=== PATIENT | male | born 2000 | race Two or more races ===

== ENCOUNTER 2019-08-06 11:26 | Emergency (ER) | payer MEDICAID, OTHER ==
[~2019-08-06] VITALS: Ht 180.3 cm; Wt 72.7 kg
[2019-08-06] MEDS ORDERED: RISP4TAB73 PO (11:39)
[2019-08-06] MEDS ORDERED: GUAN1TAB22 PO (11:39)
[2019-08-06] MEDS ORDERED: ATOM25CA8 PO (11:39)
[2019-08-06] MEDS ORDERED: HYD25 PO (11:39)
[2019-08-06 12:31] LABS: BASOPHILS % (AUTO) 0.2 % (0.0-2.0); EOSINOPHILS % (AUTO) 0.2 % (1.0-6.0); HEMATOCRIT 42.4 % (41-53); HEMOGLOBIN 14.4 g/dL (13.5-17.5); LYMPHOCYTES # (AUTO) 2.3 K/uL (1.0-4.8); LYMPHOCYTES % (AUTO) 24.8 % (22.0-44.0); MEAN CORPUSCULAR HEMOGLOBIN 29.8 pg (26.0-34.0); MEAN CORPUSCULAR HGB CONC 33.9 G/dL (31.0-37.0); MEAN CORPUSCULAR VOLUME 88 fL (80-100); MONOCYTES # (AUTO) 0.6 K/uL (0.1-1.0); MONOCYTES % (AUTO) 6.6 % (2.0-9.0); NEUTROPHILS # (AUTO) 6.4 K/uL (1.8-7.7); NEUTROPHILS % (AUTO) 68.2 % (40.0-70.0); PLATELET COUNT (AUTO) 252 K/uL (150-450); RED BLOOD CELL COUNT(AUTO) 4.83 MIL/uL (4.50-5.90); RED CELL DISTRIBUTION WIDTH 13.4 % (11.5-14.5)
[2019-08-06 12:47] LABS: ANION GAP 11 mmol/L (8-16); CARBON DIOXIDE 26 mmol/L (22-29); CHLORIDE 104 mmol/L (98-107); CREATININE 0.67 mg/dL (0.60-1.30); GLOMERULAR FILTR. RATE CALC > 60 mL/min (>60); GLUCOSE,RANDOM 107 mg/dL (70-110); POTASSIUM 3.2 mmol/L (3.5-5.1); SODIUM SERUM 141 mmol/L (136-145); UREA NITROGEN, BLOOD 7 mg/dL (7-18)
[2019-08-06 12:55] LABS: ALANINE AMINOTRANSFERASE 18 U/L (12-78); ALBUMIN 4.5 g/dL (3.4-5.0); ALKALINE PHOSPHATASE 123 U/L (46-116); ASPARTATE AMINOTRANSFERASE 13 U/L (15-37); BILIRUBIN,TOTAL 0.4 mg/dL (0.1-1.0); TOTAL PROTEIN, SERUM 7.8 g/dL (6.4-8.2)
[2019-08-06] MEDS ORDERED: LORazepam 1 MG TABLET PO ONE (13:15)
[2019-08-06 13:49] VITALS: BP 126/70
== END 2019-08-06 14:08 | disposition home or self-care (01) ==
LOC: EMS 11:27
DX: Z03.818 Encounter for observation for suspected exposure to other biological agents ruled out (principal); R45.851 Suicidal ideations; F41.9 Anxiety disorder, unspecified; Z88.8 Allergy status to other drugs, medicaments and biological substances
CPT/HCPCS: 36415; 80053; 85025; 87635; 99284; G0480; U0003

== ENCOUNTER 2019-08-29 11:18 | Inpatient (IN) | payer MEDICAID, OTHER ==
[~2019-08-29] VITALS: Ht 180.3 cm; Wt 73.6 kg
[~2019-08-29 11:18] MED LIST: ATOM25CA8 PO; GUAN1TAB22 PO; HYD25 PO; RISP4TAB73 PO
[2019-08-29 11:52] LABS: BASOPHILS % (AUTO) 0.2 % (0.0-2.0); EOSINOPHILS % (AUTO) 1.3 % (1.0-6.0); HEMATOCRIT 42.7 % (41-53); HEMOGLOBIN 14.6 g/dL (13.5-17.5); LYMPHOCYTES # (AUTO) 2.5 K/uL (1.0-4.8); LYMPHOCYTES % (AUTO) 26.2 % (22.0-44.0); MEAN CORPUSCULAR HEMOGLOBIN 30.5 pg (26.0-34.0); MEAN CORPUSCULAR HGB CONC 34.1 G/dL (31.0-37.0); MEAN CORPUSCULAR VOLUME 89 fL (80-100); MONOCYTES # (AUTO) 1.2 K/uL (0.1-1.0); MONOCYTES % (AUTO) 11.9 % (2.0-9.0); NEUTROPHILS # (AUTO) 5.8 K/uL (1.8-7.7); NEUTROPHILS % (AUTO) 60.4 % (40.0-70.0); PLATELET COUNT (AUTO) 210 K/uL (150-450); RED BLOOD CELL COUNT(AUTO) 4.78 MIL/uL (4.50-5.90); RED CELL DISTRIBUTION WIDTH 14.5 % (11.5-14.5)
[2019-08-29 12:03] LABS: ANION GAP 10 mmol/L (8-16); CALCIUM, TOTAL 8.7 mg/dL (8.8-10.5); CARBON DIOXIDE 25 mmol/L (22-29); CHLORIDE 106 mmol/L (98-107); CREATININE 0.73 mg/dL (0.60-1.30); GLOMERULAR FILTR. RATE CALC > 60 mL/min (>60); GLUCOSE,RANDOM 99 mg/dL (70-110); POTASSIUM 3.8 mmol/L (3.5-5.1); SODIUM SERUM 141 mmol/L (136-145); UREA NITROGEN, BLOOD 11 mg/dL (7-18)
[2019-08-29 12:12] LABS: ALANINE AMINOTRANSFERASE 17 U/L (12-78); ALBUMIN 3.8 g/dL (3.4-5.0); ALKALINE PHOSPHATASE 104 U/L (46-116); ASPARTATE AMINOTRANSFERASE 13 U/L (15-37); BILIRUBIN,TOTAL 0.2 mg/dL (0.1-1.0); TOTAL PROTEIN, SERUM 7.4 g/dL (6.4-8.2)
[2019-08-29] MEDS ORDERED: HydrOXYzine PAMOATE 50 MG CAPSULE PO PRN (15:00)
[2019-08-29] MEDS ORDERED: MAGNESIUM HYDROXIDE SUSPENSION 30 ML UDCUP PO PRN (15:00)
[2019-08-29] MEDS ORDERED: PALIPERIDONE PALMITATE 234 MG/1.5 ML SYRINGE IM ONE (15:00)
[2019-08-29] MEDS ORDERED: GuaiFENesin/D-METHORPHAN [SUGAR-FREE] 200-20MG/10 ML SYRUP UDCUP PO PRN (15:00)
[2019-08-29] MEDS ORDERED: ACETAMINOPHEN 325 MG TABLET PO PRN (15:00)
[2019-08-29] MEDS ORDERED: PALIPERIDONE 1.5 MG ER TABLET PO PRN (15:00)
[2019-08-29] MEDS ORDERED: MAG HYDROX/AL HYDROX/SIMETH ES 30 ML SUSPENSION UDCUP PO PRN (15:00)
[2019-08-29] MEDS ORDERED: PROMETHAZINE HCL 25 MG TABLET PO PRN (15:00)
[2019-08-29] MEDS ORDERED: TUBERCULIN, PURIFIED PROTEIN DERIVATIVE 5 TU/0.1 ML SYRINGE ID ONE (15:00)
[2019-08-29] MEDS ORDERED: LOPERAMIDE HCL 2 MG CAPSULE PO PRN (15:00)
[2019-08-29] MEDS: THIAMINE 100 MG TABLET PO SCH (16:00)
[2019-08-29] MEDS: GuanFACINE HCL 1 MG TABLET PO SCH (16:00)
[2019-08-29] MEDS: LORazepam 2 MG TABLET PO PRN (16:00)
[2019-08-29 16:02] VITALS: BP 132/70
[2019-08-29 16:04] VITALS: BP 122/78
[2019-08-29] MEDS: DIVALPROEX SODIUM 500 MG ER TABLET PO SCH (20:56)
[2019-08-29] MEDS ORDERED: PALIPERIDONE 3 MG ER TABLET PO SCH (21:00)
[2019-08-30 08:05] VITALS: BP 133/95
[2019-08-30] MEDS: MULTIVITAMINS WITH MINERALS, THERAPEUTIC TABLET PO SCH (08:26)
[2019-08-30] MEDS: FOLIC ACID 1 MG TABLET PO SCH (08:26)
[2019-08-30] MEDS: GuanFACINE HCL 1 MG TABLET PO SCH ×3 (08:26→16:03)
[2019-08-30] MEDS: THIAMINE 100 MG TABLET PO SCH ×2 (08:26→16:03)
[2019-08-30 09:07] LABS: CHOL/HDL RATIO 2.5 (4.2-7.3); FREE T4 (FREE THYROXINE) 1.07 ng/dL (0.76-1.46); THYROID STIMULATING HORMONE 1.85 uIU/mL (0.36-3.74)
[2019-08-30 09:37] LABS: HEMOGLOBIN A1C 4.8 % (3.8-5.6)
[2019-08-30 16:00] VITALS: BP 135/75
[2019-08-30] MEDS: LORazepam 2 MG TABLET PO PRN (18:08)
[2019-08-30] MEDS: ZOLPIDEM TARTRATE 10 MG TABLET PO PRN (20:00)
[2019-08-30] MEDS: DIVALPROEX SODIUM 500 MG ER TABLET PO SCH (20:00)
[2019-08-31 06:54] VITALS: BP 130/81
[2019-08-31 08:19] VITALS: BP 128/67
[2019-08-31] MEDS: GuanFACINE HCL 1 MG TABLET PO SCH ×3 (09:01→20:49)
[2019-08-31] MEDS: THIAMINE 100 MG TABLET PO SCH ×2 (09:01→16:22)
[2019-08-31] MEDS: MULTIVITAMINS WITH MINERALS, THERAPEUTIC TABLET PO SCH (09:01)
[2019-08-31] MEDS: FOLIC ACID 1 MG TABLET PO SCH (09:01)
[2019-08-31] MEDS ORDERED: QUEtiapine FUMARATE 100 MG TABLET PO PRN (15:15)
[2019-08-31 16:01] VITALS: BP 120/77
[2019-08-31] MEDS: RisperiDONE 3 MG TABLET PO SCH (16:22)
[2019-08-31] MEDS: LORazepam 2 MG TABLET PO PRN (16:22)
[2019-08-31] MEDS: HydrOXYzine HCL 25 MG TABLET PO SCH ×2 (20:49→21:03)
[2019-08-31] MEDS: DIVALPROEX SODIUM 500 MG ER TABLET PO SCH (20:49)
[2019-08-31] MEDS ORDERED: QUEtiapine FUMARATE 200 MG TABLET PO SCH (21:00)
[2019-09-01 05:15] VITALS: BP 132/83
[2019-09-01 08:00] VITALS: BP 120/67
[2019-09-01] MEDS: FOLIC ACID 1 MG TABLET PO SCH (08:19)
[2019-09-01] MEDS: MULTIVITAMINS WITH MINERALS, THERAPEUTIC TABLET PO SCH (08:19)
[2019-09-01] MEDS: RisperiDONE 3 MG TABLET PO SCH ×2 (08:19→16:39)
[2019-09-01] MEDS: THIAMINE 100 MG TABLET PO SCH ×2 (08:19→16:39)
[2019-09-01 14:19] VITALS: BP 120/67
[2019-09-01 16:03] VITALS: BP 137/69
[2019-09-01] MEDS: LORazepam 2 MG TABLET PO PRN (16:39)
[2019-09-01] MEDS: GuanFACINE HCL 1 MG TABLET PO SCH (20:26)
[2019-09-01] MEDS: HydrOXYzine HCL 25 MG TABLET PO SCH (20:26)
[2019-09-01] MEDS: DIVALPROEX SODIUM 500 MG ER TABLET PO SCH (20:26)
[2019-09-02 05:55] VITALS: BP 122/72
[2019-09-02 08:09] VITALS: BP 128/67
[2019-09-02] MEDS: MULTIVITAMINS WITH MINERALS, THERAPEUTIC TABLET PO SCH (08:51)
[2019-09-02] MEDS: FOLIC ACID 1 MG TABLET PO SCH (08:52)
[2019-09-02] MEDS: RisperiDONE 3 MG TABLET PO SCH ×2 (08:52→16:42)
[2019-09-02] MEDS: THIAMINE 100 MG TABLET PO SCH ×2 (08:52→16:42)
[2019-09-02] MEDS ORDERED: PALIPERIDONE PALMITATE 156 MG/ML SYRINGE IM ONE ×2 (09:00→18:00)
[2019-09-02 16:03] VITALS: BP 118/65
[2019-09-02] MEDS: LORazepam 2 MG TABLET PO PRN (16:42)
[2019-09-02] MEDS: HydrOXYzine HCL 25 MG TABLET PO SCH (20:44)
[2019-09-02] MEDS: GuanFACINE HCL 1 MG TABLET PO SCH (20:45)
[2019-09-02] MEDS: DIVALPROEX SODIUM 250 MG ER TABLET PO SCH (20:45)
[2019-09-03 06:08] VITALS: BP 122/73
[2019-09-03 08:16] VITALS: BP 125/64
[2019-09-03] MEDS: MULTIVITAMINS WITH MINERALS, THERAPEUTIC TABLET PO SCH (08:52)
[2019-09-03] MEDS: LORazepam 2 MG TABLET PO PRN ×2 (08:52→16:46)
[2019-09-03] MEDS: FOLIC ACID 1 MG TABLET PO SCH (08:52)
[2019-09-03] MEDS: RisperiDONE 3 MG TABLET PO SCH ×2 (08:52→16:46)
[2019-09-03] MEDS: THIAMINE 100 MG TABLET PO SCH ×2 (08:53→16:46)
[2019-09-03 16:53] VITALS: BP 102/62
[2019-09-03] MEDS: GuanFACINE HCL 1 MG TABLET PO SCH (20:29)
[2019-09-03] MEDS: DIVALPROEX SODIUM 250 MG ER TABLET PO SCH (20:29)
[2019-09-03] MEDS: ZOLPIDEM TARTRATE 10 MG TABLET PO PRN (20:29)
[2019-09-03] MEDS: HydrOXYzine HCL 25 MG TABLET PO SCH (20:29)
[2019-09-04 06:04] VITALS: BP 117/70
[2019-09-04] MEDS: MULTIVITAMINS WITH MINERALS, THERAPEUTIC TABLET PO SCH (08:06)
[2019-09-04] MEDS: THIAMINE 100 MG TABLET PO SCH ×2 (08:06→17:10)
[2019-09-04] MEDS: RisperiDONE 3 MG TABLET PO SCH ×2 (08:06→17:10)
[2019-09-04] MEDS: FOLIC ACID 1 MG TABLET PO SCH (08:06)
[2019-09-04 08:25] VITALS: BP 122/77
[2019-09-04 16:03] VITALS: BP 120/71
[2019-09-04] MEDS: HydrOXYzine HCL 25 MG TABLET PO SCH (20:19)
[2019-09-04] MEDS: DIVALPROEX SODIUM 250 MG ER TABLET PO SCH (20:19)
[2019-09-04] MEDS: GuanFACINE HCL 1 MG TABLET PO SCH (20:20)
[2019-09-05 01:14] VITALS: BP 124/76
[2019-09-05 08:12] VITALS: BP 133/79
[2019-09-05] MEDS: RisperiDONE 3 MG TABLET PO SCH ×2 (09:01→16:49)
[2019-09-05] MEDS: FOLIC ACID 1 MG TABLET PO SCH (09:01)
[2019-09-05] MEDS: THIAMINE 100 MG TABLET PO SCH ×2 (09:01→16:49)
[2019-09-05] MEDS: MULTIVITAMINS WITH MINERALS, THERAPEUTIC TABLET PO SCH (09:01)
[2019-09-05 16:02] VITALS: BP 134/77
[2019-09-05] MEDS: HydrOXYzine HCL 25 MG TABLET PO SCH (20:12)
[2019-09-05] MEDS: DIVALPROEX SODIUM 250 MG ER TABLET PO SCH (20:13)
[2019-09-05] MEDS: GuanFACINE HCL 1 MG TABLET PO SCH (20:13)
[2019-09-05] MEDS: ZOLPIDEM TARTRATE 10 MG TABLET PO PRN (23:43)
[2019-09-05] MEDS: LORazepam 2 MG TABLET PO PRN (23:43)
[2019-09-06 05:57] VITALS: BP 128/78
[2019-09-06] MEDS: RisperiDONE 3 MG TABLET PO SCH ×2 (08:10→16:30)
[2019-09-06] MEDS: THIAMINE 100 MG TABLET PO SCH ×2 (08:10→16:30)
[2019-09-06] MEDS: FOLIC ACID 1 MG TABLET PO SCH (08:10)
[2019-09-06] MEDS: MULTIVITAMINS WITH MINERALS, THERAPEUTIC TABLET PO SCH (08:10)
[2019-09-06 09:08] VITALS: BP 123/68
[2019-09-06 16:00] VITALS: BP 117/68
[2019-09-06] MEDS: HydrOXYzine HCL 25 MG TABLET PO SCH (20:12)
[2019-09-06] MEDS: DIVALPROEX SODIUM 250 MG ER TABLET PO SCH (20:12)
[2019-09-06] MEDS: GuanFACINE HCL 1 MG TABLET PO SCH (20:12)
[2019-09-06] MEDS ORDERED: DIVALPROEX SODIUM 250 MG ER TABLET PO ONE (21:45)
[2019-09-07 00:26] VITALS: BP 110/62
[2019-09-07] MEDS: THIAMINE 100 MG TABLET PO SCH ×2 (08:14→16:50)
[2019-09-07] MEDS: RisperiDONE 3 MG TABLET PO SCH ×2 (08:14→16:50)
[2019-09-07] MEDS: MULTIVITAMINS WITH MINERALS, THERAPEUTIC TABLET PO SCH (08:14)
[2019-09-07] MEDS: FOLIC ACID 1 MG TABLET PO SCH (08:14)
[2019-09-07 09:07] VITALS: BP 104/60
[2019-09-07 16:10] VITALS: BP 128/71
[2019-09-07] MEDS: LORazepam 2 MG TABLET PO PRN (16:50)
[2019-09-07] MEDS: DIVALPROEX SODIUM 500 MG ER TABLET PO SCH (20:11)
[2019-09-07] MEDS: ZOLPIDEM TARTRATE 10 MG TABLET PO PRN (20:11)
[2019-09-07] MEDS: HydrOXYzine HCL 25 MG TABLET PO SCH (20:11)
[2019-09-07] MEDS: GuanFACINE HCL 1 MG TABLET PO SCH (20:11)
[2019-09-08 05:00] VITALS: BP 128/68
[2019-09-08 08:10] VITALS: BP 114/60
[2019-09-08] MEDS: MULTIVITAMINS WITH MINERALS, THERAPEUTIC TABLET PO SCH (08:12)
[2019-09-08] MEDS: LORazepam 2 MG TABLET PO PRN ×2 (08:12→20:25)
[2019-09-08] MEDS: THIAMINE 100 MG TABLET PO SCH (08:12)
[2019-09-08] MEDS: FOLIC ACID 1 MG TABLET PO SCH (08:12)
[2019-09-08] MEDS: RisperiDONE 3 MG TABLET PO SCH (08:12)
[2019-09-08] MEDS ORDERED: OLANZapine 5 MG RAPDIS TABLET PO PRN (15:30)
[2019-09-08 16:03] VITALS: BP 135/82
[2019-09-08] MEDS: OLANZapine 5 MG RAPDIS TABLET PO SCH (20:25)
[2019-09-08] MEDS: GuanFACINE HCL 1 MG TABLET PO SCH (20:25)
[2019-09-08] MEDS: HydrOXYzine HCL 25 MG TABLET PO SCH (20:25)
[2019-09-08] MEDS: DIVALPROEX SODIUM 500 MG ER TABLET PO SCH (20:25)
[2019-09-08] MEDS: ZOLPIDEM TARTRATE 10 MG TABLET PO PRN (20:25)
[2019-09-09 05:31] VITALS: BP 127/82
[2019-09-09] MEDS: MULTIVITAMINS WITH MINERALS, THERAPEUTIC TABLET PO SCH (08:01)
[2019-09-09 08:16] VITALS: BP 112/82
[2019-09-09] MEDS: LORazepam 2 MG TABLET PO PRN (15:58)
[2019-09-09 16:04] VITALS: BP 118/61
[2019-09-09] MEDS: OLANZapine 5 MG RAPDIS TABLET PO SCH (20:13)
[2019-09-09] MEDS: DIVALPROEX SODIUM 500 MG ER TABLET PO SCH (20:13)
[2019-09-09] MEDS: GuanFACINE HCL 1 MG TABLET PO SCH (20:13)
[2019-09-09] MEDS: HydrOXYzine HCL 25 MG TABLET PO SCH (20:14)
[2019-09-09] MEDS: ZOLPIDEM TARTRATE 10 MG TABLET PO PRN (20:14)
[2019-09-10 06:13] VITALS: BP 116/75
[2019-09-10] MEDS: LORazepam 2 MG TABLET PO PRN (08:07)
[2019-09-10] MEDS: MULTIVITAMINS WITH MINERALS, THERAPEUTIC TABLET PO SCH (08:07)
[2019-09-10 09:36] VITALS: BP 126/64
[2019-09-10 16:07] VITALS: BP 136/75
[2019-09-10] MEDS: GuanFACINE HCL 1 MG TABLET PO SCH (20:09)
[2019-09-10] MEDS: OLANZapine 5 MG RAPDIS TABLET PO SCH (20:09)
[2019-09-10] MEDS: HydrOXYzine HCL 25 MG TABLET PO SCH (20:09)
[2019-09-10] MEDS: DIVALPROEX SODIUM 500 MG ER TABLET PO SCH (20:09)
[2019-09-11 03:56] VITALS: BP 127/73
[2019-09-11 08:06] VITALS: BP 119/63
[2019-09-11] MEDS: MULTIVITAMINS WITH MINERALS, THERAPEUTIC TABLET PO SCH (08:55)
[2019-09-11 16:07] VITALS: BP 134/80
[2019-09-11] MEDS: LORazepam 2 MG TABLET PO PRN ×2 (17:46→21:52)
[2019-09-11] MEDS: GuanFACINE HCL 1 MG TABLET PO SCH (20:42)
[2019-09-11] MEDS: HydrOXYzine HCL 25 MG TABLET PO SCH (20:43)
[2019-09-11] MEDS: DIVALPROEX SODIUM 500 MG ER TABLET PO SCH (20:43)
[2019-09-11] MEDS: OLANZapine 5 MG RAPDIS TABLET PO SCH (20:44)
[2019-09-12 08:08] VITALS: BP 124/64
[2019-09-12] MEDS: MULTIVITAMINS WITH MINERALS, THERAPEUTIC TABLET PO SCH (09:43)
[2019-09-12 16:05] VITALS: BP 122/69
[2019-09-12] MEDS: OLANZapine 5 MG RAPDIS TABLET PO SCH (20:31)
[2019-09-12] MEDS: HydrOXYzine HCL 25 MG TABLET PO SCH (20:32)
[2019-09-12] MEDS: DIVALPROEX SODIUM 500 MG ER TABLET PO SCH (20:32)
[2019-09-12] MEDS: GuanFACINE HCL 1 MG TABLET PO SCH (21:00)
[2019-09-13 06:36] VITALS: BP 124/70
[2019-09-13 08:09] VITALS: BP 128/80
[2019-09-13] MEDS: MULTIVITAMINS WITH MINERALS, THERAPEUTIC TABLET PO SCH (08:27)
[2019-09-13] MEDS: LORazepam 2 MG TABLET PO PRN (08:37)
[2019-09-13] MEDS ORDERED: OLAN5TAB30 PO (15:28)
[2019-09-13] MEDS ORDERED: DIVA-80 PO (15:28)
[2019-09-13] MEDS ORDERED: GUAN1TAB2 PO (15:28)
[2019-09-13 16:02] VITALS: BP 139/72
[2019-09-13] MEDS: DIVALPROEX SODIUM 500 MG ER TABLET PO SCH (20:16)
[2019-09-13] MEDS: GuanFACINE HCL 1 MG TABLET PO SCH (20:16)
[2019-09-13] MEDS ORDERED: OLANZapine 10 MG RAPDIS TABLET PO SCH (21:00)
[2019-09-14 05:15] VITALS: BP 129/68
[2019-09-14 08:03] VITALS: BP 117/80
[2019-09-14] MEDS: MULTIVITAMINS WITH MINERALS, THERAPEUTIC TABLET PO SCH (08:10)
[2019-09-30] MEDS ORDERED: PALIPERIDONE PALMITATE 117 MG/0.75 ML SYRINGE IM SCH (09:00)
== END 2019-09-14 15:20 | disposition home or self-care (01) | DRG 885 ==
LOC: EMS 11:23 → B3A 13:43 → B2S 09-12 13:40
PROVIDERS: ADMIT Psychiatry & Neurology Psychiatry; ATTEND Psychiatry & Neurology Psychiatry
DX: F20.0 Paranoid schizophrenia (principal); Z79.899 Other long term (current) drug therapy; Z88.8 Allergy status to other drugs, medicaments and biological substances; F90.9 Attention-deficit hyperactivity disorder, unspecified type; F84.0 Autistic disorder; R45.850 Homicidal ideations; F41.9 Anxiety disorder, unspecified; Z91.19 Patient's noncompliance with other medical treatment and regimen
CPT/HCPCS: 83036; 84439; 84443; 86592; 87081; G0480